=== PATIENT | female | born 1990 | race Hispanic/Latino ===

== ENCOUNTER 2017-01-02 19:06 | Emergency (ER) | payer OTHER ==
[2017-01-02 19:20] VITALS: RESP 16
[2017-01-02 19:59] LABS: BASO % 0.3 % (0.0-2.0); EOS % 0.3 % (0.0-4.0); HEMOGLOBIN 11.9 g/dL (12.0-16.0); LYMPH # 1.4 K/uL (1.0-4.3); LYMPH % 10.6 % (20.0-40.0); MEAN CELL VOLUME 90.9 fl (81.0-99.0); MEAN CORPUSCULAR HEMOGLOBIN 31.3 pg (27.0-31.0); MEAN CORPUSCULAR HGB CONC 34.4 g/dL (33.0-37.0); MEAN PLATELET VOLUME 7.4 fl (7.2-11.7); MONO # 1.4 K/uL (0.0-0.8); MONO % 10.6 % (0.0-10.0); NEUT # 10.6 K/uL (1.8-7.0); NEUT % 78.2 % (50.0-75.0); RBC 3.81 Mil/uL (3.80-5.20); WHITE BLOOD COUNT 13.6 K/uL (4.8-10.8)
[2017-01-02 20:11] LABS: ALB/GLOB RATIO 1.2 (1.0-2.1); ALBUMIN 4.3 g/dL (3.5-5.0); ALT/SGPT 26 U/L (9-52); AST/SGOT 19 U/L (14-36); BLOOD UREA NITROGEN 6 mg/dl (7-17); CALCIUM 8.9 mg/dL (8.4-10.2); GFR AFRICAN-AMERICAN > 60; GFR NON-AFRICAN AMERICAN > 60
[2017-01-02] MEDS ORDERED: Sodium Chloride 0.9% 1,000 ML IV STA (20:18)
[2017-01-02 21:11] VITALS: BP 100/63; PULSE 87; TEMP 98.5
--- NOTE | 2017-01-02 21:19 | ED PDOC ---
HPI: General Adult Time Seen by Provider: 01/02/17 19:27 Chief Complaint (Nursing): ENT Problem Past Medical History Vital Signs: Last Vital Signs Temp 101.0 F H 01/02/17 19:13 Pulse 119 H 01/02/17 19:13 Resp 16 01/02/17 19:13 BP 119/72 01/02/17 19:13 Pulse Ox 98 01/02/17 19:13 - Medical History PMH: Graves' Disease - Home Medications Home Medications: Ambulatory Orders Medication Instructions Recorded No Known Home Med 01/02/17 - Allergies Allergies/Adverse Reactions: Allergies Allergy/AdvReac Type Severity Reaction Status Date / Time amoxicillin Allergy RASH Verified 01/02/17 19:10 - Laboratory Results Result Diagrams: 01/02/17 19:54 01/02/17 19:54 - ECG O2 Sat by Pulse Oximetry: 98 Disposition - Clinical Impression Clinical Impression: Fever - Patient ED Disposition Is Patient to be Admitted: No Counseled Patient/Family Regarding: Diagnosis, Need For Followup - Disposition Referrals: [facility] [Outside] [facility] [[facility]] Disposition: Routine/Home Disposition Time: 21:05 Condition: STABLE Instructions: Fever in Adults (ED) Forms: [employer] (Finnish)
[2017-01-02 21:21] VITALS: O2SAT 100
--- NOTE | 2017-01-02 21:21 | ED PDOC ---
HPI: General Adult Time Seen by Provider: 01/02/17 19:27 Chief Complaint (Nursing): ENT Problem Chief Complaint (Provider): Fever History Per: Patient History/Exam Limitations: no limitations Current Symptoms Are (Timing): Still Present Additional Complaint(s): Bhavna Cervantes is a 26 y/o female, with a past medical history of Graves Disease, presenting to the ER on 01/02/2017 with complaints of a fever. Patient reports her thyroid feels more inflamed than baseline today. She states about two months ago she was noted by her PMD, who is handling her Graves Disorder, to be hypothyroid. She was taken off the medications, but was concerned about a hypothyroid storm, thus ambulating to the ER for medical attention. Patient further notes she had thyroid inflammation when she first presented with Graves Disease. On arrival, she denies any cough, throat pain, ear pain, or urinary symptoms. Past Medical History Reviewed: Historical Data, Nursing Documentation, Vital Signs Vital Signs: Last Vital Signs Temp 98.5 F 01/02/17 21:11 Pulse 87 01/02/17 21:11 Resp 16 01/02/17 21:11 BP 100/63 01/02/17 21:11 Pulse Ox 100 01/02/17 21:11 - Medical History PMH: Graves' Disease - Surgical History Surgical History: No Surg Hx - Family History Family History: States: Unknown Family Hx - Social History Current smoker - smoking cessation education provided: No Alcohol: Social Drugs: Denies - Home Medications Home Medications: Ambulatory Orders Medication Instructions Recorded No Known Home Med 01/02/17 - Allergies Allergies/Adverse Reactions: Allergies Allergy/AdvReac Type Severity Reaction Status Date / Time amoxicillin Allergy RASH Verified 01/02/17 19:10 Review of Systems ROS Statement: Except As Marked, All Systems Reviewed And Found Negative Constitutional: Positive for: Fever ENT: Negative for: Ear Pain, Throat Pain Respiratory: Negative for: Cough Genitourinary Female: Negative for: Dysuria, Frequency, Incontinence Physical Exam - Reviewed Nursing Documentation Reviewed: Yes Vital Signs Reviewed: Yes - Physical Exam Appears: Positive for: Non-toxic, No Acute Distress Head Exam: Positive for: ATRAUMATIC, NORMOCEPHALIC Skin: Positive for: Normal Color. Negative for: Rash Eye Exam: Positive for: Normal appearance, EOMI, PERRL ENT: Positive for: Normal ENT Inspection ((+) enlarged thyroid ) Neck: Positive for: Normal, Painless ROM, Supple Cardiovascular/Chest: Positive for: Regular Rate, Rhythm. Negative for: Murmur Respiratory: Positive for: Normal Breath Sounds. Negative for: Wheezing Extremity: Positive for: Normal ROM. Negative for: Deformity, Swelling Neurologic/Psych: Positive for: Alert, Oriented. Negative for: Motor/Sensory Deficits - Laboratory Results Result Diagrams: 01/02/17 19:54 01/02/17 19:54 - ECG O2 Sat by Pulse Oximetry: 100 Medical Decision Making Medical Decision Makin:27 Initial Impression- 26 y/o female with fever Initial Plan- * EKG * Throat Culture * Sodium Chloride 1,000 ml IV * Ibuprofen 600 mg Po Documented by Josselyn Cespedes, acting as a scribe for Marian Bass PA-C All medical record entries made by the Scribe were at my direction and personally dictated by me. I have reviewed the chart and agree that the record accurately reflects my personal performance of the history, physical exam, medical decision making, and the department course for this patient. I have also personally directed, reviewed, and agree with the discharge instructions and disposition. Disposition - Clinical Impression Clinical Impression: Fever - Disposition Referrals: [facility] [Outside] [facility] [Outside] Condition: STABLE Instructions: Fever in Adults (ED) Forms: [employer] (Portuguese)
--- NOTE | 2017-01-03 10:32 | CARD ---
APPROVED REPORT EKG Measurement Heart [id number] <Conclusion> Poor data quality, interpretation may be adversely affected Normal sinus rhythm Normal ECG
== END 2017-01-02 21:22 | disposition home or self-care (01) ==
LOC: H.ER 19:06
DX: R50.9 Fever, unspecified (principal); E05.00 Thyrotoxicosis with diffuse goiter without thyrotoxic crisis or storm